=== PATIENT | female | born 1995 | race Caucasian/White ===

== ENCOUNTER 2017-12-23 22:44 | Emergency (ER) | payer OTHER, SELFPAY ==
[2017-12-24] MEDS ORDERED: AMOX/K CLAV 875 MG TAB ONE (00:08)
[2017-12-24] MEDS ORDERED: TETANUS & DIPHTHERIA TOX,ADULT 0.5 ML VIAL ONE (00:09)
[2017-12-24] MEDS ORDERED: MUPIROCIN 2% OINT 22GM TUBE TOP ONE (00:46)
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
[2017-12-24] MEDS ORDERED: IBUPROFEN 200 MG TAB PO ONE (00:58)
[2017-12-24] MEDS ORDERED: IBUPROFEN 400 MG TAB ONE (00:58)
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
== END 2017-12-24 01:08 | disposition home or self-care (01) ==
LOC: ER 22:44
DX: S61.452A Open bite of left hand, initial encounter (principal); Y04.1XXA Assault by human bite, initial encounter; Y93.89 Activity, other specified; Y92.009 Unspecified place in unspecified non-institutional (private) residence as the place of occurrence of the external cause; Y99.9 Unspecified external cause status; Z23 Encounter for immunization
CPT/HCPCS: 90714; 99284